=== PATIENT | female | born 1995 | race African-American/Black ===

== ENCOUNTER 2021-12-26 18:39 | Emergency (ER) | payer OTHER ==
[~2021-12-26] VITALS: Ht 175.3 cm; Wt 66.0 kg
[2021-12-26] MEDS ORDERED: MORPHINE SULFATE 4 MG/ML CPJ (NOT FOR IM USE) IV STA (20:43)
[2021-12-26] MEDS ORDERED: ONDANSETRON HCL 4MG/2ML INJ IV STA (20:43)
[2021-12-26] MEDS ORDERED: HYDR-4001 MT (22:18)
[2021-12-26 22:30] VITALS: BP 135/80
== END 2021-12-26 22:35 | disposition home or self-care (01) ==
LOC: ER 18:39
DX: S82.844A Nondisplaced bimalleolar fracture of right lower leg, initial encounter for closed fracture (principal); W01.0XXA Fall on same level from slipping, tripping and stumbling without subsequent striking against object, initial encounter; Y93.89 Activity, other specified; Y92.012 Bathroom of single-family (private) house as the place of occurrence of the external cause
CPT/HCPCS: 29515; 73590; 73600; 73620; 96374; 96375; 99284; J2270; J2405